=== PATIENT | male | born 1940 | race Caucasian/White ===

== ENCOUNTER → 2020-01-03 | Outpatient (CLI) | payer OTHER ==
--- NOTE | 2020-01-03 13:36 | 2DMMODE ---
[facility] [place] [address] 2 D/M-MODE ECHOCARDIOGRAM Name: CHRIS DUNAWAY Room #: [facility]#: [id number] Admission: 01/03/20 Attend Phys: Kavon Mittal MD Discharge: Date of : 36 Report #: [id number] THIS REPORT FOR: cc: Kavon Mittal MD, Charles MD Lammoglia, Francisco J. MD ~ APPROVED REPORT Study performed: 01/03/2020 12:53:48 EXAM: Comprehensive 2D, Doppler, and color-flow Echocardiogram Patient Location: Out-Patient Room #: Echo lab 2 Status: routine BSA: 2.04 HR: 65 bpm BP: 128/82 mmHg Rhythm: NSR Other Information Study Quality: Adequate Indications Diabetes CAD Hypertension/HDD 2D Dimensions RVDd: 42.06 mm IVSd: 10.65 (7-11mm) LVOT Diam: 23.15 (18-24mm) LVDd: 40.42 mm PWd: 10.91 (7-11mm) Ascending Ao: 37.51 (22-36mm) LVDs: 31.31 (25-40mm) Aortic Root: 35.75 mm IVC: 16.00 mm Volumes Left Atrial Volume (Systole) Single Plane 4CH: 39.64 mL Single Plane 2CH: 36.90 mL LA ESV Index: 22.00 mL/m2 Aortic Valve AoV Peak Bret.: 1.38 m/s AO Peak Gr.: 8.33 mmHg LVOT Max P.43 mmHg [facility] [address] [place] [address] 2 D/M-MODE ECHOCARDIOGRAM Name: MICHAELAROBCHRIS Room #: [facility]#: [id number] Admission: 01/03/20 Attend Phys: Kavon Mittal MD Discharge: Date of : 36 Report #: [id number] LVOT Max V: 0.93 m/s SHANTA Vmax: 2.82 cm2 Mitral Valve E/A Ratio: 0.7 MV Decel. Time: 400.89 ms MV E Max Bret.: 0.70 m/s MV A Bret.: 1.06 m/s MV PHT: 116.26 ms IVRT: 156.86 ms Pulmonary Valve PV Peak Bret.: 1.10 m/s PV Peak Gr.: 4.83 mmHg Pulmonary Vein P Vein S: 0.44 m/s P Vein A: 0.20 m/s P Vein D: 0.25 m/s P Vein A Dur.: 110.7 msec P Vein S/D Ratio: 1.76 Left Ventricle The left ventricle is normal size. There is normal LV segmental wall motion. There is normal left ventricular wall thickness. Left ventricular systolic function is normal. The left ventricular ejection fraction is within the normal range. LVEF is 50%. Grade I - abnormal relaxation pattern. Right Ventricle The right ventricle is normal size. The right ventricular systolic function is normal. Atria The left atrium size is normal. The right atrium size is normal. Aortic Valve The aortic valve is normal in structure. No aortic regurgitation is present. There is no aortic valvular stenosis. Mitral Valve The mitral valve is normal in structure. There is no mitral valve regurgitation noted. No evidence of mitral valve stenosis. Tricuspid Valve The tricuspid valve is normal in structure. There is no tricuspid valve regurgitation noted. [facility] [place] [address] 2 D/M-MODE ECHOCARDIOGRAM Name: CHRIS DUNAWAY Room #: [facility]#: [id number] Admission: 01/03/20 Attend Phys: Kavon Mittal MD Discharge: Date of : 36 Report #: [id number] Pulmonic Valve The pulmonary valve is normal in structure. There is no pulmonic valvular regurgitation. Great Vessels The aortic root is normal in size. IVC is normal in size and collapses >50% with inspiration. Pericardium There is no pericardial effusion. <Conclusion> The left ventricle is normal size. LVEF is 50%. The aortic valve is normal in structure. The mitral valve is normal in structure. The tricuspid valve is normal in structure. The pulmonary valve is normal in structure. There is no pericardial effusion. <ELECTRONICALLY SIGNED> By: Kal Balbuena MD 01/03/20 [id number] Kal Balbuena MD /INF
== END ==
LOC: CV 12:43
PROVIDERS: ATTEND Orthopaedic Surgery
DX: I25.10 Atherosclerotic heart disease of native coronary artery without angina pectoris (principal)